=== PATIENT | male | born 1955 | race Caucasian/White ===

== ENCOUNTER → 2025-01-04 12:03 | Outpatient (REF) | payer MEDICARE, SELFPAY | LOC: MRI 12:03 | PROVIDERS: ATTENDING PHYSICIAN Physician Assistant Surgical; FAMILY PHYSICIAN Family Medicine | DX: M25.511 Pain in right shoulder (principal) | CPT/HCPCS: 73721 ==

== ENCOUNTER → 2025-01-17 11:10 | Outpatient (REF) | payer MEDICARE, SELFPAY ==
[2025-01-17 12:22] LABS: % Eosinophils 1.4 % (0-6); % Immature Granulocytes 0.3 % (0-0.5); % Lymphocytes 36.5 % (20.5-51.1); % Monocytes 10.1 % (1.7-9.3); % Neutrophils 50.7 % (42.2-75.2); Absolute Basophils 0.1 10^3/uL (0-0.2); Absolute Eosinophils 0.1 10^3/uL (0-0.7); Absolute Lymphocytes 2.5 10^3/uL (1.2-3.4); Absolute Monocytes 0.7 10^3/uL (0.1-0.6); Absolute Neutrophils 3.5 10^3/uL (1.4-6.5); Hematocrit 43.5 % (39.0-52.0); Hemoglobin 14.5 g/dL (13.0-18.0); Mean Corp Hgb Conc. 33.3 g/dL (33.0-37.0); Mean Corpuscular Hgb 33.9 pg (27.0-31.0); Mean Corpuscular Volume 101.6 fL (80.0-94.0); Mean Platelet Volume 9.6 fL (7.4-10.4); Nucleated Red Blood Cells % 0 % (-); Platelet Count 251 10^3/uL (130-400); Red Blood Cell Count 4.28 10^6/uL (4.70-6.10); Red Cell Dist. Width 13.2 % (11.5-14.5); White Blood Cell Count 6.9 10^3/uL (4.8-10.8)
[2025-01-17 14:02] LABS: Blood Urea Nitrogen 15 mg/dl (9-20); Calcium 9.5 mg/dl (8.4-10.2); Carbon Dioxide 27 mmol/L (22-30); Chloride 106 mmol/L (98-107); Glucose 93 mg/dl (70-99); Potassium 4.5 mmol/L (3.5-5.1); Sodium 142 mmol/L (135-145); eGFR > 60.00
== END ==
LOC: REG 11:10
PROVIDERS: ATTENDING PHYSICIAN Specialist; FAMILY PHYSICIAN Internal Medicine Infectious Disease; OTHER PHYSICIAN Family Medicine
DX: Z01.818 Encounter for other preprocedural examination (principal)
CPT/HCPCS: 36415; 80048; 85025; 93005

== ENCOUNTER 2025-06-02 09:08 | Emergency (ER) | payer MEDICARE, SELFPAY ==
[2025-06-02] VITALS (8 sets, daily range): BP systolic 108–151; BP diastolic 63–113; BMI 30.8
[2025-06-02] MEDS: NSS 1000 IV (10:27)
[2025-06-02] MEDS: DILAUDID 1 MG IV (10:27)
[2025-06-02 10:30] LABS: Hematocrit 42.0 % (39.0-52.0); Hemoglobin 14.2 g/dL (13.0-18.0); Mean Corp Hgb Conc. 33.8 g/dL (33.0-37.0); Mean Corpuscular Volume 98.6 fL (80.0-94.0); Nucleated Red Blood Cells % 0 % (-); Platelet Count 242 10^3/uL (130-400); Red Cell Dist. Width 13.4 % (11.5-14.5)
[2025-06-02 10:46] LABS: APTT 29.6 Sec (23.4-35.0); INR 0.96; PT 13.1 Sec (11.4-14.6)
[2025-06-02 10:51] LABS: ALT (SGPT) 24 U/L (0-50); AST (SGOT) 26 U/L (17-59); Albumin 4.0 g/dl (3.5-5.0); Alkaline Phosphatase 59 U/L (38-126); Blood Urea Nitrogen 15 mg/dl (9-20); Calcium 9.0 mg/dl (8.4-10.2); Carbon Dioxide 30 mmol/L (22-30); Chloride 103 mmol/L (98-107); Estimated Creatinine Clearance 88 ml/min; Glucose 113 mg/dl (70-99); Potassium 4.2 mmol/L (3.5-5.1); Sodium 137 mmol/L (135-145); Total Protein 6.9 g/dl (6.3-8.2); eGFR > 60.00
[2025-06-02] MEDS: DILAUDID 0.5 MG IV (12:43)
--- NOTE | 2025-06-02 12:53 | ED.GENMED ---
History of Present Illness
<Cassie Waldrop PA-C - Last Filed: 06/02/25 17:31>
General
Chief Complaint: Musculo-Skeletal Complaint
Source: patient
Exam Limitations: none
Time Seen by Provider: 06/02/25 09:34
Nursing documentation reviewed up to this point in time: agreed with
History of Present Illness
History of Present Illness:
see MDM
Past History
<ARIANNA Espinoza Last Filed: 06/02/25 17:31>
Past History
ED Past Medical History: HTN, Hypercholesterolemia and Other (HIV on HAART)
Social History
Tobacco: Non-smoker
Alcohol: Occasional
Drug: None
Personal:
Review of Systems
<ARIANNA Espinoza Last Filed: 06/02/25 17:31>
Review of Systems
Allergies reviewed?: Yes
All Other Systems: Not applicable
Phy Exam
<ARIANNA Espinoza Last Filed: 06/02/25 17:31>
Physical Exam
Physical Exam:
TRAUMA EXAM:
VITAL SIGNS: Vital signs reviewed, cooperative
DISTRESS: Uncomfortable with movement
EYES: Pupils reactive, no orbital trauma
NOSE: No deformity or epistaxis
FACE AND SCALP: No scalp or facial trauma, external canals no blood
NECK: Supple nontender
BACK: Left CVA tenderness pelvis stable to compression
RESPIRATORY: No distress, breath sounds normal, tender left lower ribs posteriorly cannot appreciate likely rib fracture
, Pain with changing positions
CARDIAC: No murmur, pulses equal and strong
ABDOMEN: Soft nontender bowel sounds normal
SKIN: Skin intact no bleeding, color normal, no bruising
EXTREMITIES: Nontender
NEUROLOGICAL: Alert, oriented, no motor deficit no weakness, no numbness, moving extremities normallys,
PSYCH: Mood affect normal
Course
<Cassie Waldrop PA-C - Last Filed: 06/02/25 17:31>
Orders/Labs/Results
Orders:
Orders
06/02/25 10:01
CT Chest/abd/pel W Iv Cont Urgent
Reason For Exam: left flank pain, suspected rib fx after fall
Cardiac Monitoring- Treatment ONCE
0.9% Sodium Chloride 1000 ml [Nss] 1,000 ml IV BOLUS
HYDROmorphone [Dilaudid] 1 mg IV NOW STA
06/02/25 10:20
Complete Blood Count/With Diff Urgent
Comprehensive Metabolic Panel Urgent
PTT Urgent
Prothrombin Time Urgent
06/02/25 12:29
HYDROmorphone [Dilaudid] 0.5 mg IV NOW STA
06/02/25 12:59
Ketorolac [Toradol] 30 mg IV NOW STA
06/02/25 14:21
Incentive Spirometry [Rx Incentive Spirometry] [RESP] Urgent
Frequency: q1h while awake
Abnormal Lab Results
06/02/25
10:20
RBC 4.26 L 10^6/uL
(4.70-6.10)
MCV 98.6 H fL
(80.0-94.0)
MCH 33.3 H pg
(27.0-31.0)
Absolute Monos (auto) 0.9 H 10^3/uL
(0.1-0.6)
Monocytes % 10.5 H %
(1.7-9.3)
Glucose 113 H mg/dl
(70-99)
06/02/25 10:20
06/02/25 10:20
Vital Signs
Initial and Last Documented VS:
Initial Vital Signs
Temp Pulse Resp BP Pulse Ox
97.7 F 71 20 146/75 100
06/02/25 09:12 10/18/25 09:12 06/02/25 09:12 06/02/25 09:12 06/02/25 09:12
Last Documented Vital Signs
Temp Pulse Resp BP Pulse Ox
97.7 F 55 23 129/75 97
06/02/25 09:12 06/02/25 16:00 06/02/25 16:00 06/02/25 16:00 06/02/25 16:00
<Luca Santizo, DO - Last Filed: 06/03/25 07:28>
Orders/Labs/Results
Orders:
Orders
06/02/25 10:01
CT Chest/abd/pel W Iv Cont Urgent
Reason For Exam: left flank pain, suspected rib fx after fall
Cardiac Monitoring- Treatment ONCE
0.9% Sodium Chloride 1000 ml [Nss] 1,000 ml IV BOLUS
HYDROmorphone [Dilaudid] 1 mg IV NOW STA
06/02/25 10:20
Complete Blood Count/With Diff Urgent
Comprehensive Metabolic Panel Urgent
PTT Urgent
Prothrombin Time Urgent
06/02/25 12:29
HYDROmorphone [Dilaudid] 0.5 mg IV NOW STA
06/02/25 12:59
Ketorolac [Toradol] 30 mg IV NOW STA
06/02/25 14:21
Incentive Spirometry [Rx Incentive Spirometry] [RESP] Urgent
Frequency: q1h while awake
Abnormal Lab Results
06/02/25
10:20
RBC 4.26 L 10^6/uL
(4.70-6.10)
MCV 98.6 H fL
(80.0-94.0)
MCH 33.3 H pg
(27.0-31.0)
Absolute Monos (auto) 0.9 H 10^3/uL
(0.1-0.6)
Monocytes % 10.5 H %
(1.7-9.3)
Glucose 113 H mg/dl
(70-99)
06/02/25 10:20
06/02/25 10:20
Vital Signs
Initial and Last Documented VS:
Initial Vital Signs
Temp Pulse Resp BP Pulse Ox
97.7 F 71 20 146/75 100
06/02/25 09:12 06/02/25 09:12 06/02/25 09:12 06/02/25 09:12 06/02/25 09:12
Last Documented Vital Signs
Temp Pulse Resp BP Pulse Ox
97.7 F 55 23 129/75 97
06/02/25 09:12 06/02/25 16:00 06/02/25 16:00 06/02/25 16:00 06/02/25 16:00
<Cassie Waldrop PA-C - Last Filed: 06/02/25 17:31>
MDM/Problems Addressed
Differential Diagnosis Includes:
see MDM
MDM/Problems Addressed:
Note:
CHIEF COMPLAINT(S)
Fall and subsequent pain in the lower side.
HISTORY OF PRESENT ILLNESS
The patient is a 69-year-old male who presents after experiencing a fall last night. According to the patient, he fell onto a concrete surface, impacting his lower side, but did not hit his head or neck. He did not lose consciousness and reports no
numbness or tingling in his extremities. The patient describes immediate pain at the site of impact, which he later noted to be bruised and swollen. The pain has been described as severe, affecting his ability to move and breathe, and he reports
that 'it wasnt easy last night' due to the pain. The patient took 800 mg of ibuprofen last night but nothing for pain since then. The patient denies losing control of his bladder or experiencing numbness in the perianal region. He also reports a
history of a back surgery.
PAST MEDICAL AND SURGICAL HISTORY
The patient has a history of controlled HIV and a past back surgery.
CHRONIC MEDICAL CONDITIONS SIGNIFICANTLY AFFECTING CARE
The patient has been diagnosed with HIV, which is well-controlled. He also has hypertension, high cholesterol, and diabetes, for which he is currently managing with medications.
SOCIAL HISTORY
The patient is on medications including a statin and medication for diabetes, high cholesterol, and hypertension. He denies any allergies.
MEDICATIONS
- Statin (for high cholesterol)
- Diabetes medication
- Blood pressure medication
PHYSICAL EXAM
- Nursing notes reviewed and vital signs reviewed.
- The patient was noted to have tenderness in the lower side at the location of impact.
- Swelling was observed on the back part of the rib area.
- Tenderness was reported near the ribs.
PROBLEM LIST
Acute:
- Pain and bruising following a fall on the lower side.
- Possible rib and kidney trauma.
Chronic:
- Controlled HIV
- Hypertension
- Hyperlipidemia
- Diabetes
PLAN
1. Initiate intravenous access to draw blood.
2. Administer pain relief with dilaudid.
3. Arrange for a computed tomography scan to assess for potential rib and kidney trauma.
4. Patient has been instructed to refrain from eating or drinking until further notice.
5. Inform the family that they can return in a couple of hours, as the procedure and assessments may take some time.
DIFFERENTIAL DIAGNOSIS
The Differential Diagnosis includes, in no particular order and is not limited to:
1. Rib fracture
2. Kidney contusion or trauma
3. Muscle strain
4. Internal bleeding
5. Costochondritis
6. Osteoporotic fracture
7. Spinal injury
8. Liver injury
9. Hemothorax
10. Pneumothorax
69-year-old male with history of hypertension, high cholesterol, HIV positive on Eid with a undetectable viral load and normal CD4 presents for mechanical fall off of a step onto a concrete lawn ornament yesterday. Patient was able to get himself
up but has had significant pain in his left lower ribs and back. Is not radiating and is not having any numbness tingling or weakness down his legs. He has had painful deep breathing so he is taking more shallow breaths. No fevers or chills. He
is not a smoker.
On exam the patient has felt like palpable rib fractures to the left lower chest wall, stable vital signs, no oxygen requirement
Pending trauma scan
06/02/25 - 12:57
The patient�s rib fractures, for total are analyzed as two non-displaced fractures and two slightly displaced ones: specifically, fractures at locations seven, eight, nine, and ten, with nine and ten being displaced. No associated complications such
as a punctured lung, kidney injury, or traumatic bleeding were identified, and the patients oxygen level remains stable. Pain management strategies were discussed, with a plan to add Toradol to the current Dilaudid regimen after confirming kidney
function is normal. An option to be admitted to a trauma center, such as [place] or [place], was offered due to the pain severity, but the patient expressed willingness to be transferred if necessary. Further pain assessment and decision on
transfer will be revisited after initiating Toradol, with reassessment to occur in approximately one hour. The patient is advised to perform deep breathing exercises using an incentive spirometer to prevent pneumonia.
06/02/25 - 14:03
Patient expressed desire to be discharged and return home. Discussed potential pain management strategies, including use of ibuprofen twice daily and acetaminophen three times daily. Stool softeners prescribed to prevent constipation while on pain
medication regimen. Patient advised to consider follow-up at a trauma center if pain persists in 2-3 days. Provided with a copy of the CT scan report for records and potential future consultations.
<Cassie Waldrop PA-C - Last Filed: 06/02/25 17:31>
*Pulse Oximetry
SaO2: 96
Oxygen Mode of Delivery: Room air
Patient hypoxic: no (97)
*Critical Care Note
Total Time (30-74mins, 75-104mins- exclusive of procedures): Not Applicable
ED Attending Note
<Cassie Waldrop PA-C - Last Filed: 06/02/25 17:31>
-
Portions of this chart may have been created with voice recognition software.� Occasional wrong word or��sound alike� substitutions may have occurred due to the inherent limitations of voice recognition software.
<Luca Santizo DO - Last Filed: 06/03/25 07:28>
ED Attending Note
Patient seen and examined by attending physician: Yes
I performed the substantive portion of visit, reviewed & personally made and approve the management plan that is documented in note by myself or ZACARIAS.: Yes
ED Attending Note:
Multiple rib fractures by CT. No evidence of visceral injury. Patient appears and remains stable. Pain control. Considered admission but patient would like to trial outpatient management which I think is reasonable
Discharge Plan
Departure
Patient Disposition: Home (Routine Discharge)
Date of Disposition: 06/02/25
Time of Disposition: 14:15
Patient with high blood pressure during this ER visit?: Yes
Covid-19: Not Applicable
Discharge Problem:
Rib fractures
Instructions: Rib fracture or bruised rib - ED (DC)
Prescriptions:
New
oxycodone 5 mg tablet
5 mg PO Q8H PRN (Reason: Pain) Qty: 13 0RF
docusate sodium [Colace] 100 mg capsule
100 mg PO BID Qty: 20 0RF
No Action
sertraline 50 MG tablet
50 mg PO HS
gabapentin [Neurontin] 600 MG tablet
600 mg PO HS
atorvastatin 20 MG tablet
20 mg PO DAILY
valacyclovir 1,000 MG tablet
1,000 mg PO HS
Genvoya 1 TABLET tablet
1 ea PO HS
omega 8-hyc-umx-fish oil [Fish Oil] 1,200 (144-216) mg Capsule
1 cap PO DAILY
Vitamin D3
1 tab PO DAILY
coQ10 (ubiquinol)
1 tab PO DAILY
magnesium
400 mg PO DAILY
acetaminophen [Tylenol Extra Strength] 500 MG tablet
1,000 mg PO Q6H PRN (Reason: pain)
valsartan 160 mg Tablet
160 mg PO DAILY
oxycodone-acetaminophen 5-325 mg tablet
1 tab PO Q4H PRN (Reason: moderate to severe pain) Qty: 6 0RF
Referrals:
Yamil Dodd MD [Family Provider, Internal Medicine] - Follow up in 2-3 days
Activity Restrictions/Additional Instructions:
You have 4 broken ribs, the 2 lower ones are displaced slightly. It is fractures through 7, 8, 9 and 10. This will take some time to heal. Use the incentive spirometer at least once a every 2 hours while awake, for total of 10 deep breaths to
avoid getting pneumonia.
For pain you can take Tylenol 2 extra strength 3 times a day
Ibuprofen 600 mg with food 3 times a day for 3 to 5 days
If the pain is more severe you can use oxycodone 5 mg every 8 hours as needed. While you are on this use a stool softener. Follow-up with your doctor this week. If you have more significant pain or feel short of breath you need to return
immediately.
Otherwise see your doctor.
Interventions
Interventions:
*Risk Screen - Suicide Last Done: 06/02/25 09:12
*General Assessment Last Done: 06/02/25 10:21
*Neglect/Abuse Screening Last Done: 06/02/25 09:12
*ED- Fall Risk Assessment Last Done: 06/02/25 16:32
*ED COVID-19 Vaccine History Last Done: 06/02/25 10:21
*ED Influenza Vaccine History Last Done: 06/02/25 10:21
*Nursing Disposition Last Done: 06/02/25 16:32
ED-Musculoskeletal Assessment Last Done: 06/02/25 11:00
Discharge Date and Time
Discharge Date/Time: 06/02/25 16:33
Print Language: [id number]
[2025-06-02] MEDS: TORADOL 30 MG IV (13:11)
== END 2025-06-02 16:33 | disposition home or self-care (01) ==
LOC: EMR 09:08
PROVIDERS: Physician Assistant; EMERGENCY PHYSICIAN Emergency Medicine; FAMILY PHYSICIAN Internal Medicine Infectious Disease
DX: S22.42XA Multiple fractures of ribs, left side, initial encounter for closed fracture (principal); W19.XXXA Unspecified fall, initial encounter; I10 Essential (primary) hypertension; E78.00 Pure hypercholesterolemia, unspecified; Z21 Asymptomatic human immunodeficiency virus [HIV] infection status; E11.9 Type 2 diabetes mellitus without complications; Z79.899 Other long term (current) drug therapy
CPT/HCPCS: 96374; 96375; 96376; 96361; 99284; 71260; 74177; 80053; 85025; 85610; 85730; Q9967

== ENCOUNTER → 2025-06-18 11:27 | Outpatient (REF) | payer MEDICARE, SELFPAY | LOC: PAVMRI 11:27 | PROVIDERS: ATTENDING PHYSICIAN Physician Assistant Surgical; FAMILY PHYSICIAN Internal Medicine Infectious Disease | DX: M25.511 Pain in right shoulder (principal) | CPT/HCPCS: 73221 ==

== ENCOUNTER → 2025-07-29 08:00 | Outpatient (REF) | payer MEDICARE, SELFPAY | LOC: MRI 3T 08:00 | PROVIDERS: ATTENDING PHYSICIAN Specialist; FAMILY PHYSICIAN Internal Medicine Infectious Disease | DX: M25.561 Pain in right knee (principal) | CPT/HCPCS: 73721 ==